=== PATIENT | male | born 2000 | race Caucasian/White ===

== ENCOUNTER 2022-12-09 11:10 | Outpatient (REF) | payer MEDICAID, SELFPAY ==
[2022-12-09 13:00] LABS: Influenza A PCR NEGATIVE (Negative); Influenza B PCR NEGATIVE (Negative); Resp Syncy Virus RNA Qual PCR NEGATIVE (Negative); SARS COV2 PCR INHOUSE NEGATIVE (Negative)
== END 2022-12-09 11:11 | disposition home or self-care (01) ==
LOC: HO.LNP 11:10
PROVIDERS: Visit Provider Physician Assistant
DX: Z20.822 Contact with and (suspected) exposure to COVID-19 (principal)
CPT/HCPCS: 0241U

== ENCOUNTER 2024-02-23 14:20 | Outpatient (AMB) | payer OTHER, SELFPAY ==
[2024-02-23 14:27] VITALS: BP 130/80; PULSE 90; TEMP 36.7; O2SAT 96; BMI 25.8
--- NOTE | 2024-02-23 14:27 | MHC.OFFWIV ---
Intake Vital Signs 02/23/24 14:27 Height 5 ft 8 in Weight 170 lb BMI 25.8 BP 130/80 Blood Pressure Location Lt brachial Position Sitting Pulse 90 Pulse Source Pulse Oximeter Temp 98.0 F Temp Source Temporal Artery Scan Pulse Oximetry (%) 96 Oxygen Delivery Method Room Air Intake Visit Reasons: EST/got something in left eye (lobby) Intake Note: pt is here today for got something in lft eye started today Patient Tobacco Use Status: Never used Tobacco Allergies codeine [CODEINE] Allergy (Unknown, Verified 02/23/24 15:10) LOOPY From [facility] DISKUS Allergy (Unknown, Uncoded 02/23/24 15:10) LOOPY Do you need a note to return to daycare/school/sports/work: No HPI EST/got something in left eye (lobby) HPI Details 23 yr old male presents to the office for a sick visit. Pt felt a piece of metal going into the left eye. PFSH Social History Patient Tobacco Use Status: Never used Tobacco Physical Exam Vital Signs: Last Vital Signs Temp 98.0 F 02/23/24 14:27 Pulse 90 02/23/24 14:27 BP 130/80 02/23/24 14:27 Pulse Ox 96 02/23/24 14:27 Oxygen Delivery Method Room Air 02/23/24 14:27 BMI result Body Mass Index 25.8 HEENT Other: Left eye: Small FB identified embedded at 9 O clock position in the sclera Office Procedures Foreign Body Removal Details: Eye profusely irrigated. Pt continues to feel the presence of the FB. Under the upper eyelid, a tiny yellow piece identified. The [place] of saline directed at the area, did not see it come out. However patient continues to feel the FB sensation. [id number] body removal, simple Additional procedure code (CPT) needed Assessment & Plan Assessment & Plan (1) Foreign body in eyeball, left: Code(s): S05.52XA - Penetrating wound with foreign body of left eyeball, initial encounter Plan: See procedure note. Pt continued to feel the FB in the eye despite aggressive irrigation. [place] [facility] contacted,,,he would see the patient in his office right away. Appt made. Orders: Orders AMB Removal of foreign body Today S05.52XA - Penetrating wound with foreign body of left eyeball, initial encounter Coding Level of Care Code New Pt Level 2 (08402) Diagnoses Foreign body in eyeball, left S05.52XA CPT Codes Details - Foreign body simple: [id number] body removal, simple ([id number])
== END 2024-02-23 15:13 | disposition home or self-care (01) ==
PROVIDERS: Visit Provider Internal Medicine
DX: S05.52XA Penetrating wound with foreign body of left eyeball, initial encounter (principal)
CPT/HCPCS: 99202